=== PATIENT | female | born 1965 | race Caucasian/White ===

== ENCOUNTER 2023-11-25 10:53 | Emergency (ER) | payer OTHER ==
[2023-11-25 11:02] VITALS: RESP 18; TEMP 97.2
[2023-11-25] MEDS ORDERED: Sodium Chloride 0.9% 1000 ML 1,000 ML IV STA (11:02)
[2023-11-25] MEDS ORDERED: NITRO-BID 2% UD PACKETS TOP ONE (11:02)
[2023-11-25] MEDS ORDERED: BABY ASPIRIN 81 MG CHEW PO ONE (11:02)
[2023-11-25] MEDS ORDERED: MORPHINE SULFATE 2 MG INJ IV ONE (11:02)
[2023-11-25] MEDS ORDERED: HEPARIN 5000 UNITS/0.5 ML (HIGH RISK MED) IV STA (11:05)
[2023-11-25] MEDS ORDERED: Zofran 4 MG/2 ML VIAL IV ONE (11:11)
[2023-11-25] MEDS ORDERED: Zofran 4 MG/2 ML VIAL ONE (11:12)
[2023-11-25] MEDS ORDERED: Sodium Chloride 0.9% 1000 ML 1,000 ML ONE (11:12)
[2023-11-25] MEDS ORDERED: BABY ASPIRIN 81 MG CHEW ONE (11:15)
[2023-11-25] MEDS ORDERED: NITRO-BID 2% UD PACKETS ONE (11:15)
[2023-11-25] MEDS ORDERED: MORPHINE SULFATE 2 MG INJ ONE (11:15)
[2023-11-25] MEDS ORDERED: HEPARIN 5000 UNITS/0.5 ML (HIGH RISK MED) ONE (11:15)
[2023-11-25 11:22] LABS: Hemoglobin 14.6 g/dL (12.0-16.0); Mean Corpuscular Hemoglobin 27.9 pg (26-32); Mean Corpuscular Hgb Concent. 33.2 g/dL (32-36); Mean Platelet Volume 9.3 fL (7.5-11.0); Platelet Count 461 x10^3/uL (150-450); Red Blood Count 5.24 x10^6/uL (4.1-5.4); White Blood Count 13.5 x10^3/uL (4.0-10.5)
--- NOTE | 2023-11-25 11:22 | ERPHSYRPT ---
- History of Present Illness Time Seen by Provider: 11/25/23 11:02 Historian: patient Exam Limitations: no limitations Patient Subjective Stated Complaint: pt here for chest pain that started last wednesday. pain to right wrist, right elbow and center of chest. was seen at office today and had outpt labs and ekg Triage Nursing Assessment: pt alert, walked in, resp easy, skin w/d/p. chest clear, abd soft. no edema noted Physician History: The patient is a 58-year-old who presents with chest pain. She has had chest pain over the weekend. Is gone on and off for the past several days. She was at work and got worse. She went to the doctor. They sent her over for EKG and cardiac enzymes. Her troponin was positive at 1.5. They told her to come to the emergency room. The patient's been having on again off again chest pain it seems to go away. It was worse with exertion. She has diabetes hypertension and elevated cholesterol. She denies any cardiac history Aspirin Treatment Today: 81 mg x 1 Allergies/Adverse Reactions: No Known Drug Allergies Allergy (Unverified 11/25/23 10:55) Home Medications: Amlodipine Besylate 1 ea DAILY 11/25/23 [History] Atorvastatin Calcium 10 mg PO DAILY 11/25/23 [History] Carvedilol 12.5 mg [Coreg 12.5 mg] 12.5 mg PO BID 11/25/23 [History] Semaglutide [Ozempic] 0.25 mg SQ UD 11/25/23 [History] Triamterene/Hydrochlorothiazid [Triamterene-Hctz 37.5-25 mg Tb] 1 each PO DAILY 11/25/23 [History] Hx Tetanus, Diphtheria Vaccination/Date Given: No Hx Influenza Vaccination/Date Given: No Hx Pneumococcal Vaccination/Date Given: No Immunizations Up to Date: Yes Travel Risk - International Travel Have you traveled outside of the country in past 3 weeks: No - Coronavirus Screening Are you exhibiting any of the following symptoms?: No Close contact with a COVID-19 positive Pt in past 14-21 Days: No - Vaccine Status Have you recieved a Covid-19 vaccination: No - Review of Systems Constitutional: No Fever, No Chills Eyes: No Symptoms Ears, Nose, & Throat: No Symptoms Respiratory: Dyspnea, No Cough Cardiac: Chest Pain, No Edema, No Syncope Abdominal/Gastrointestinal: No Abdominal Pain, No Nausea, No Vomiting, No Diarrhea Genitourinary Symptoms: No Dysuria Musculoskeletal: No Back Pain, No Neck Pain Skin: No Rash Neurological: No Dizziness, No Focal Weakness, No Sensory Changes Psychological: No Symptoms Endocrine: No Symptoms All Other Systems: Reviewed and Negative - Past Medical History Pertinent Past Medical History: Yes Cardiac History: High Cholesterol, Hypertension Endocrine Medical History: Diabetes Type II - Past Surgical History Past Surgical History: Yes Female Surgical History: Hysterectomy - Social History Smoking Status: Former smoker Exposure to second hand smoke: No Drug Use: none Patient Lives Alone: No - Nursing Vital Signs Nursing Vital Signs: Initial Vital Signs Temperature 97.2 F 11/25/23 11:02 Pulse Rate 89 11/25/23 11:02 Respiratory Rate 18 11/25/23 11:02 Blood Pressure 180/123 11/25/23 11:02 O2 Sat by Pulse Oximetry 100 11/25/23 11:02 Pain Scale Pain Intensity 0 - Physical Exam General Appearance: no apparent distress, alert Eye Exam: PERRL/EOMI, eyes nml inspection Ears, Nose, Throat Exam: normal ENT inspection, moist mucous membranes Neck Exam: normal inspection, non-tender, supple, full range of motion Respiratory Exam: normal breath sounds, lungs clear, No respiratory distress Cardiovascular Exam: regular rate/rhythm, normal heart sounds Gastrointestinal/Abdomen Exam: soft, No tenderness, No mass Back Exam: normal inspection, No CVA tenderness, No vertebral tenderness Extremity Exam: normal inspection, normal range of motion Neurologic Exam: alert, oriented x 3, cooperative, normal mood/affect, sensation nml, No motor deficits Skin Exam: normal color, warm, dry SpO2 Interpretation: normal SpO2: 100 O2 Delivery: Room Air - Course Nursing assessment & vital signs reviewed: Yes EKG Interpreted by Me: Sinus Rhythm Ordered Tests: Active Orders 24 hr Category Date Time Status Property Controller STAT Care 11/25/23 11:03 Completed EKG-ER Only STAT Care 11/25/23 11:02 Completed IV Insertion STAT Care 11/25/23 11:02 Completed CBC Stat Lab 11/25/23 11:15 Completed PROTIME WITH INR Stat Lab 11/25/23 11:15 Completed PTT Stat Lab 11/25/23 11:15 Completed TROPONIN Q4H Lab 11/25/23 11:15 Completed Medication Summary Discontinued Medications Generic Name Dose Route Start Last Admin Trade Name Arnie PRN Reason Stop Dose Admin Aspirin 162 mg 11/25/23 11:02 11/25/23 11:16 Aspirin 81 Mg Tab.Chew PO 11/25/23 11:03 162 mg STAT ONE Administration Aspirin Confirm 11/25/23 11:15 Aspirin 81 Mg Tab.Chew Administered 11/25/23 11:16 Dose 162 mg .ROUTE .STK-MED ONE Heparin Sodium (Beef Lung) 5,001 unit 11/25/23 11:05 11/25/23 11:16 Heparin 5000 Units/0.5 Ml 5,000 Unit/0.5 Ml Syr IV 11/25/23 11:06 5,000 unit STAT STA Administration Heparin Sodium (Beef Lung) Confirm 11/25/23 11:15 Heparin 5000 Units/0.5 Ml 5,000 Unit/0.5 Ml Syr Administered 11/25/23 11:16 Dose 5,000 unit .ROUTE .STK-MED ONE Sodium Chloride 1,000 mls @ 999 mls/hr 11/25/23 11:02 11/25/23 11:19 Sodium Chloride 0.9% 1000 Ml IV 11/25/23 12:02 999 mls/hr .Q1H1M STA Administration Heparin Sodium/Dextrose 25,000 units in 250 mls @ 10.864 mls/hr 11/25/23 11:30 11/25/23 11:25 Heparin 25,000 Units/D5w: Use Order Set Carol IV 12/25/23 11:29 12 units/kg/hr .Q23H1M BETSY 10.864 mls/hr Administration Protocol 12 UNITS/KG/HR Sodium Chloride Confirm 11/25/23 11:12 Sodium Chloride 0.9% 1000 Ml Administered 11/25/23 11:13 Dose 1,000 mls @ ud .ROUTE .STK-MED ONE Heparin Sodium/Dextrose Confirm 11/25/23 11:25 Heparin 25,000 Units/D5w: Use Order Set Carol Administered 11/25/23 11:26 Dose 25,000 units in 250 mls @ ud IV .STK-MED ONE Morphine Sulfate 2 mg 11/25/23 11:02 11/25/23 11:18 Morphine Sulfate 2 Mg/Ml Inj IV 11/25/23 11:03 2 mg STAT ONE Administration Morphine Sulfate Confirm 11/25/23 11:15 Morphine Sulfate 2 Mg/Ml Inj Administered 11/25/23 11:16 Dose 2 mg .ROUTE .STK-MED ONE Nitroglycerin 1 gm 11/25/23 11:02 11/25/23 11:18 Nitroglycerin 1 Gm Packet TOP 11/25/23 11:03 1 gm STAT ONE Administration Nitroglycerin Confirm 11/25/23 11:15 Nitroglycerin 1 Gm Packet Administered 11/25/23 11:16 Dose 1 gm .ROUTE .STK-MED ONE Ondansetron HCl 4 mg 11/25/23 11:11 11/25/23 11:26 Ondansetron Hcl 4 Mg/2 Ml Vial IV 11/25/23 11:12 4 mg STAT ONE Administration Ondansetron HCl Confirm 11/25/23 11:12 Ondansetron Hcl 4 Mg/2 Ml Vial Administered 11/25/23 11:13 Dose 4 mg .ROUTE .STK-MED ONE Lab/Rad Data: Laboratory Result Diagrams 11/25/23 11:15 Laboratory Results 11/25/23 11/25/23 11/25/23 Range/Units 11:15 11:15 11:15 WBC 13.5 H (4.0-10.5) x10^3/uL RBC 5.24 (4.1-5.4) x10^6/uL Hgb 14.6 (12.0-16.0) g/dL Hct 44.0 (35-47) % MCV 84.0 (78-100) fL MCH 27.9 (26-32) pg MCHC 33.2 (32-36) g/dL RDW 13.0 (11.5-14.0) % Plt Count 461 H (150-450) x10^3/uL MPV 9.3 (7.5-11.0) fL PT 10.7 (9.4-12.5) SECONDS INR 0.98 (0.8-3.0) APTT 26.6 (25.1-36.5) SECONDS Troponin I 1.670 H* (0.000-0.034) ng/mL The patient and EKG showed normal sinus rhythm.The EKG showed ST elevation inferiorly in 2 and aVF. There was significant depressions in V1 V2 and V3. Otherwise nonspecific ST wave flattening. Rate of 83. Interpreted by myself The patient had chemistries which were obtained earlier today in outpatient lab. Significant for troponin of 1.5 elevated. The patient CBC was largely unremarkable. Chest x-ray was also obtained. Chest x-ray today showed minimal right lung segmental atelectasis or scarring. Otherwise no acute process. There is also a chronic endplate fracture of T-11. - Progress Progress: re-examined Progress Note: 11/25/23 11:23 The patient was found to have a possible STEMI or significant acute coronary syndrome with reciprocal changes. I did speak immediately with Dr. Mendieta. He was up at [facility]. He is in the emergency room. The patient was accepted ER to ER for possible STEMI. The patient at this point will be started on heparin and aspirin morphine and Nitropaste. The patient clinically at this point remains hemodynamically stable. Once again the patient was started on heparin drip. The patient will be bolus. This will be done per protocol. Transfer has been arranged. This will be a stat transfer. Acute WI/STEMI Discussed with Dr.: Other Will see patient in: ED Counseled pt/family regarding: lab results, diagnosis, rad results Medical Desision Making - Independent Historian Additional History obtained from: Spouse - Discussion of managment Care discussed with:: on-call "doc" Reviewed:: Test results, Need for additional workup Agreed on:: Treatment plan Will see patient: in ED - Diagnostic Testing Diagnostic test were ordered, analyzed, and reviewed by me: Yes - Risk of complications The pt has a high risk of morbidity or mortality based on: Drug therapy requiring intensive monitoring for toxicity - Departure Departure Disposition: Transfer Clinical Impression: ST elevation (STEMI) myocardial infarction, Chest pain due to CAD, ACS (acute coronary syndrome) Condition: Critical Critical Care Time: Yes Critical Care Time(excluding separately billable procedures): Critical 30-74 mins Referrals: CLAUDIA MAN [Primary Care Provider] - Follow up/PCP as directed
[2023-11-25] MEDS ORDERED: Heparin 25,000 units/D5W: USE ORDER SET PROTO 25,000 UNITS/250 ML BAG IV ONE (11:25)
[2023-11-25] MEDS ORDERED: Heparin 25,000 units/D5W: USE ORDER SET PROTO 25,000 UNITS/250 ML BAG IV SCH (11:30)
[2023-11-25 11:34] VITALS: BP 157/102; PULSE 92
[2023-11-25 11:37] LABS: INR 0.98 (0.8-3.0); PROTIME 10.7 SECONDS (9.4-12.5); PTT 26.6 SECONDS (25.1-36.5)
[2023-11-25 13:55] VITALS: O2SAT 100
== END 2023-11-25 11:52 | disposition short-term general hospital (02) ==
LOC: ED 10:53
DX: I21.3 ST elevation (STEMI) myocardial infarction of unspecified site (principal); I25.119 Atherosclerotic heart disease of native coronary artery with unspecified angina pectoris; I24.9 Acute ischemic heart disease, unspecified; E11.9 Type 2 diabetes mellitus without complications; I10 Essential (primary) hypertension; E78.5 Hyperlipidemia, unspecified; Z79.85 Long-term (current) use of injectable non-insulin antidiabetic drugs; Z79.899 Other long term (current) drug therapy; Z28.310 Unvaccinated for COVID-19
CPT/HCPCS: 36000; 36415; 84484; 85027; 85610; 85730; 93005; 93041; 96374; 96375; 99285; 99291; J1644; J2270; J2405; A9270-GY